=== PATIENT | male | born 1970 | race Caucasian/White ===

== ENCOUNTER 2018-04-22 13:49 | Emergency (ER) | payer OTHER ==
--- NOTE | 2018-04-22 14:30 | C.PDOC ---
History Of Present Illness 47 year old male presents to the ED for evaluation of right shoulder pain which has been constant for one month. Patient states pain is worse with movement and when laying down. 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 Patient also complains of right upper quadrant abdominal pain (contrary to triage) for the past 3-4 days. Patient denies fever, chills, decreased appetite, nausea and vomiting (contrary to triage), changes in bowel habits (patient has history of chronic constipation), or urinary symptoms at this time. Time Seen by Provider: 04/22/18 14:16 Chief Complaint (Nursing): Abdominal Pain History Per: Patient History/Exam Limitations: no limitations Onset/Duration Of Symptoms: Other (shoulder pain for one month, RUQ pain for 3-4 days ) Current Symptoms Are (Timing): Still Present Additional History Per: Patient Past Medical History Reviewed: Historical Data, Nursing Documentation, Vital Signs Vital Signs: Last Vital Signs Temp 97.5 F L 04/22/18 13:56 Pulse 102 H 04/22/18 13:56 Resp 20 04/22/18 13:56 BP 129/81 04/22/18 13:56 Pulse Ox 99 04/22/18 13:56 - Medical History PMH: No Chronic Diseases Surgical History: No Surg Hx Family History: States: Unknown Family Hx - Social History Hx Alcohol Use: Yes Hx Substance Use: No - Immunization History Hx Tetanus Toxoid Vaccination: No Hx Influenza Vaccination: No Hx Pneumococcal Vaccination: No Review Of Systems Constitutional: Negative for: Fever, Chills Gastrointestinal: Positive for: Abdominal Pain (right upper quadrant ), Constip ation (chronic ). Negative for: Nausea, Vomiting, Diarrhea Genitourinary: Negative for: Dysuria, Frequency, Hematuria Physical Exam - Physical Exam Appears: Non-toxic, No Acute Distress Skin: Normal Color, Warm, Dry Head: Atraumatic, Normacephalic Eye(s): bilateral: Normal Inspection Oral Mucosa: Moist Neck: Supple Chest: Symmetrical, No Deformity, Tenderness (over right costal margin ) Cardiovascular: Rhythm Regular, No Murmur Respiratory: Normal Breath Sounds, No Rales, No Rhonchi, No Wheezing Gastrointestinal/Abdominal: Bowel Sounds (normal ), Soft, No Tenderness, No Guarding, No Rebound Extremity: No Normal ROM (limited active and passive range of motion, secondary to pain with extension and abduction of right upper extremity ), Tenderness (ove r right humeral head/bicep ), Capillary Refill (less than 2 seconds ), No Deformity, No Swelling Neurological/Psych: Oriented x3, Normal Speech, Normal Cognition, Normal Sensa tion Gait: Steady ED Course And Treatment - Laboratory Results Result Diagrams: 04/22/18 14:29 04/22/18 14:29 Lab Interpretation: Abnormal (Blood sugar elevated) O2 Sat by Pulse Oximetry: 99 (on RA) Pulse Ox Interpretation: Normal - Other Rad right shoulder X-Ray: Viewed By Me, Read By Radiologist Interpretation: No acute fracture or dislocation. No soft tissue calcifications - CT Scan/US Ultrasound abdomen Other Rad Studies (CT/US): Read By Radiologist, Radiology Report Reviewed CT/US Interpretation: Accession No. : [id number]. Patient Name / ID : OMAR ZAVALA / [id number]. Exam Date : 04/22/2018 15:11:54 ( Approved ). Study Comment : Sex / Age : M / 47Y. Creator : Macario Pink MD. Dictator : Macario Pink MD. Process Machine Operator : Pet Groomer : Macario Pink MD. Approver2 : Report Date : 04/22/2018 16:10:16. My Comment : . Date of service: 04/22/2018. HISTORY: abd pain. COMPARISON: None. TECHNIQUE: Sonographic evaluation of the abdomen. FINDINGS: LIVER: Measures 17.0 cm. Diffusely increased echogenicity of the liver parenchyma. Consistent with fatty infiltration. Smooth contour. No mass. No biliary dilatation. GALLBLADDER: Unremarkable. No gallstones. COMMON BILE DUCT: Measures 4 mm. No stones. No dilatation. PANCREAS: Unremarkable as visualized. No mass. No ductal dilatation. RIGHT KIDNEY: Measures 12.6cm. Normal echogenicity. No calculus, mass, or hydronephrosis. LEFT KIDNEY: Measures 11.7cm. Normal echogenicity. No calculus, mass, or hydronephrosis. SPLEEN: Normal in size and contour. No mass. AORTA: No aneurysmal dilatation. IVC: Unremarkable. OTHER FINDINGS: None. IMPRESSION: No evidence of cholelithiasis or cholecystitis. Fatty infiltration of the liver. Otherwise unremarkable. Progress Note: Bloodwork, urinalysis, Right Shoulder XR, and Abdominal ultrasound were ordered and reviewed. Patient treated with Motrin po and IV fluids. Repeat glucose Reevaluation Time: 16:26 Reassessment Condition: Improved (glucose 282. Patient admits to being noncompliant with medication over t he past weekend due to alcohol intoxication.) Disposition Counseled Patient/Family Regarding: Studies Performed, Diagnosis, Need For Followup - Disposition Referrals: Richard Meier [facility] [Outside] Disposition: HOME/ ROUTINE Disposition Time: 16:26 Condition: IMPROVED Instructions: Type 2 Diabetes, Diabetes Diet , Shoulder Bursitis Forms: [employer] (Macedonian) Print Language: SWAZI - Clinical Impression Clinical Impression: Hyperglycemia due to type 2 diabetes mellitus, Bursitis of shoulder, right - Scribe Statement The provider has reviewed the documentation as recorded by the Scribe (Irena Wallace) Provider Attestation: All medical record entries made by the Scribe were at my direction and personally dictated by me. I have reviewed the chart and agree that the record accurately reflects my personal performance of the history, physical exam, medical decision making, and the department course for this patient. I have also personally directed, reviewed, and agree with the discharge instructions and disposition.
[2018-04-22 14:41] LABS: BASO % 0.3 % (0.0-2.0); EOS # 0.1 K/uL (0.0-0.7); EOS % 1.4 % (0.0-4.0); HEMOGLOBIN 13.6 g/dL (12.0-18.0); LYMPH # 1.2 K/uL (1.0-4.3); LYMPH % 34.1 % (20.0-40.0); MEAN CORPUSCULAR HEMOGLOBIN 28.9 pg (27.0-31.0); MEAN PLATELET VOLUME 7.9 fL (7.2-11.7); MONO # 0.4 K/uL (0.0-0.8); MONO % 11.1 % (0.0-10.0); NEUT # 1.9 K/uL (1.8-7.0); NEUT % 53.1 % (50.0-75.0); RBC 4.7 Mil/uL (4.40-5.90); RED CELL DISTRIBUTION WIDTH 12.7 % (11.5-14.5); WHITE BLOOD COUNT 3.6 K/uL (4.8-10.8)
--- NOTE | 2018-04-22 14:54 | RAD ---
PROCEDURE: Radiographs of the Right Shoulder HISTORY: shoulder pain no injury COMPARISON: No prior. FINDINGS: BONES: No acute displaced fracture. The distal clavicle and underlying ribs appear intact. JOINTS: No acute dislocation. SOFT TISSUES: Soft tissues appear unremarkable. No evidence of radiopaque foreign body. IMPRESSION: No acute displaced fracture or dislocation evident. If symptoms persist or if there is continued clinical concern, x-ray follow-up in 7-10 days should be considered.
[2018-04-22 14:55] LABS: URINE BILIRUBIN NEGATIVE (NEGATIVE); URINE BLOOD NEGATIVE (NEGATIVE); URINE CLARITY Clear (Clear); URINE COLOR Yellow (YELLOW); URINE GLUCOSE (UA) 3+ mg/dL (Normal); URINE LEUKOCYTE ESTERASE NEG Leu/uL (Negative); URINE PROTEIN NEGATIVE (NEGATIVE)
[2018-04-22] MEDS ORDERED: Sodium Chloride 0.9% 1,000 ML IV ONE (15:21)
[2018-04-22 15:22] LABS: ALB/GLOB RATIO 1.6 (1.0-2.1); ALBUMIN 3.9 g/dL (3.5-5.0); ALT/SGPT 46 U/L (21-72); AST/SGOT 27 U/L (17-59); BLOOD UREA NITROGEN 9 mg/dL (9-20); CALCIUM 8.3 mg/dl (8.6-10.4); GFR NON-AFRICAN AMERICAN > 60; LIPASE 90 U/L (23-300)
--- NOTE | 2018-04-22 16:13 | US ---
Date of service: 04/22/2018 HISTORY: abd pain COMPARISON: None. TECHNIQUE: Sonographic evaluation of the abdomen. FINDINGS: LIVER: Measures 17.0 cm. Diffusely increased echogenicity of the liver parenchyma. Consistent with fatty infiltration. Smooth contour. No mass. No biliary dilatation. GALLBLADDER: Unremarkable. No gallstones. COMMON BILE DUCT: Measures 4 mm. No stones. No dilatation. PANCREAS: Unremarkable as visualized. No mass. No ductal dilatation. RIGHT KIDNEY: Measures 12.6cm. Normal echogenicity. No calculus, mass, or hydronephrosis. LEFT KIDNEY: Measures 11.7cm. Normal echogenicity. No calculus, mass, or hydronephrosis. SPLEEN: Normal in size and contour. No mass. AORTA: No aneurysmal dilatation. IVC: Unremarkable. OTHER FINDINGS: None. IMPRESSION: No evidence of cholelithiasis or cholecystitis. Fatty infiltration of the liver. Otherwise unremarkable.
[2018-04-22] MEDS ORDERED: Sodium Chloride 0.9% 1,000 ML ONE (16:34)
[2018-04-22 16:46] VITALS: BP 119/78; PULSE 81; RESP 18; TEMP 97.6; O2SAT 100
== END 2018-04-22 17:08 | disposition home or self-care (01) ==
LOC: C.ER 13:49
DX: E11.65 Type 2 diabetes mellitus with hyperglycemia (principal); M75.51 Bursitis of right shoulder
CPT/HCPCS: 73030; 76700; 80053; 81001; 82948; 83690; 85025; 99285; J7030

== ENCOUNTER 2018-09-03 11:15 | Emergency (ER) | payer OTHER ==
[2018-09-03 11:21] VITALS: BP 123/74; PULSE 95; RESP 16; TEMP 98.4; O2SAT 100
[2018-09-03] MEDS ORDERED: Dexamethasone 4 mg/1 ml IM STA (11:45)
[2018-09-03] MEDS ORDERED: Dexamethasone 4 mg/1 ml ONE (12:06)
--- NOTE | 2018-09-03 12:08 | C.PDOC ---
History Of Present Illness 48 y/o male,w/PMhx of diabetes, presents to the ER complaining of right shoulder pain which has been present for the past several days. Patient states that the pain radiates down the right arm and fingers. Patient reports that he now has bilateral shoulder pain. He notes that the pain is worse with movement. He states that he followed up in the clinic and he was given pain medication, but was unable to get those medications. Denies having direct, trauma, falls, injuries, weakness, CP, and SOB. Time Seen by Provider: 09/03/18 11:26 Chief Complaint (Nursing): Upper Extremity Problem/Injury History Per: Patient History/Exam Limitations: no limitations Onset/Duration Of Symptoms: Days Current Symptoms Are (Timing): Still Present Severity: Moderate Recent travel outside of the [place]: No Past Medical History Reviewed: Historical Data, Nursing Documentation, Vital Signs Vital Signs: Last Vital Signs Temp 98.4 F 09/03/18 11:19 Pulse 95 H 09/03/18 11:19 Resp 16 09/03/18 11:19 BP 123/74 09/03/18 11:19 Pulse Ox 100 09/03/18 11:19 - Medical History PMH: No Chronic Diseases Surgical History: No Surg Hx Family History: States: No Known Family Hx - Social History Hx Alcohol Use: Yes Hx Substance Use: No - Immunization History Hx Tetanus Toxoid Vaccination: No Hx Influenza Vaccination: No Hx Pneumococcal Vaccination: No Review Of Systems Except As Marked, All Systems Reviewed And Found Negative. Cardiovascular: Negative for: Chest Pain Respiratory: Negative for: Shortness of Breath Musculoskeletal: Positive for: Shoulder Pain (right shoulder pain) Physical Exam - Physical Exam Appears: Non-toxic, No Acute Distress Skin: Normal Color, Warm, Dry, No Rash Head: Atraumatic, Normacephalic Eye(s): bilateral: Normal Inspection, PERRL, EOMI Nose: Normal Oral Mucosa: Moist Throat: No Erythema, No Exudate Neck: Normal ROM, Supple Chest: Symmetrical Cardiovascular: Rhythm Regular, No Friction Rub, No Murmur Respiratory: Normal Breath Sounds, No Rales, No Rhonchi, No Wheezing Gastrointestinal/Abdominal: Soft, No Tenderness Extremity: Normal ROM (pain with abduction of bilateral shoulders), Capillary Refill (< 2 seconds), No Swelling Pulses: Left Brachial: Normal, Right Brachial: Normal Neurological/Psych: Oriented x3, Normal Speech, Normal Motor, Normal Sensation Gait: Steady ED Course And Treatment ECG: Interpreted By Me, Viewed By Me ECG Rhythm: Sinus Rhythm Interpretation Of ECG: NSR with normal axises and no ST/ T wave changes Rate From EC O2 Sat by Pulse Oximetry: 100 (RA) Pulse Ox Interpretation: Normal Medical Decision Making Medical Decision Making: Plan: --EKG --Toradol IM --Decadron IM On re-exam, the patient reports improvement of symptoms. Lungs are CTA, heart is RRR, abdomen is soft, non-tender and the patient is tolerating PO well. Patient was instructed to follow up with the medical clinic within 2-3 days. Return if worsened. Disposition - Disposition Referrals: Gray Russ MD [Staff Provider] - Jeyson Vidal MD [Medical Doctor] - Disposition: HOME/ ROUTINE Disposition Time: 12:25 Condition: IMPROVED Additional Instructions: This could a polymyalgia rheumatica follow up with the medical clinic within 2-3 days. Return if worsened. Prescriptions: Cyclobenzaprine [Flexeril] 5 mg PO TID #21 tab Naproxen [Naprosyn] 500 mg PO BID #20 tab predniSONE [Prednisone] 10 mg PO BID #10 tab Instructions: Osteoarthritis (DC), Joint Pain Forms: [employer] (Turkish) - Clinical Impression Clinical Impression: Joint pain, Arthritis - PA / [employer] / Resident Statement MD/DO has reviewed & agrees with the documentation as recorded. - Scribe Statement The provider has reviewed the documentation as recorded by the Rafy Oglesby Provider Attestation All medical record entries made by the Rovertoibvaldez were at my direction and personally dictated by me. I have reviewed the chart and agree that the record accurately reflects my personal performance of the history, physical exam, medical decision making, and the department course for this patient. I have also personally directed, reviewed, and agree with the discharge instructions and disposition.
--- NOTE | 2018-09-06 19:43 | CARD ---
APPROVED REPORT Date of service: 09/03/2018 EKG Measurement Heart [id number] <Conclusion> Normal sinus rhythm Normal ECG
== END 2018-09-03 12:39 | disposition home or self-care (01) ==
LOC: C.ER 11:15
DX: M19.90 Unspecified osteoarthritis, unspecified site (principal); M25.511 Pain in right shoulder
CPT/HCPCS: 93005; 96372; 99284; J1100; J1885